=== PATIENT | male | born 1950 | race Caucasian/White ===

== ENCOUNTER 2018-07-23 07:07 | Outpatient (CLI) | payer BC ==
--- NOTE | 2018-07-23 07:53 | ULT ---
RIGHT UPPER QUADRANT ULTRASOUND: Date: 07/23/18 HISTORY: Right upper quadrant pain. FINDINGS: There is poor visualization of the left lobe of the liver and the pancreas due to overlying bowel gas . The right lobe of the liver demonstrates increased echogenicity consistent with fatty infiltration without focal mass or intrahepatic ductal dilatation. No gallstones, gallbladder wall thickening, or pericholecystic fluid is seen. The common duct measures 6.0 mm in diameter. Right kidney is normal. N o free fluid is seen in Morison's pouch. IMPRESSION: 1. Fatty liver. 2. No evidence of cholelithiasis. POS: [facility]
== END 2018-07-23 07:08 | disposition home or self-care (01) ==
LOC: SCSULT 07:07
PROVIDERS: ATTEND Internal Medicine
DX: R10.11 Right upper quadrant pain (principal); K76.0 Fatty (change of) liver, not elsewhere classified
CPT/HCPCS: 76705

== ENCOUNTER 2019-02-25 14:45 | Emergency (ER) | payer BC ==
[2019-02-25] MEDS ORDERED: diphenhydrAMINE 50 MG/ML VIAL ONE (15:28)
[2019-02-25] MEDS ORDERED: Ketorolac Tromethamine 30 MG/ML VIAL ONE (15:28)
[2019-02-25] MEDS ORDERED: Metoclopramide HCl 10 MG/2 ML VIAL ONE (15:28)
== END 2019-02-25 16:53 | disposition home or self-care (01) ==
LOC: ERS 14:45
DX: R51 Headache (principal); I10 Essential (primary) hypertension; E78.5 Hyperlipidemia, unspecified; Z79.899 Other long term (current) drug therapy; Z79.82 Long term (current) use of aspirin
CPT/HCPCS: 96365; 96375; J1200; J1885; J2765

== ENCOUNTER 2019-08-12 17:38 | Emergency (ER) | payer BC ==
[~2019-08-12 17:38] MED LIST: Iopamidol-370 76% 500 ML 1 ML ONE
[2019-08-12 18:17] LABS: #Eosinphils 0.1 thou/uL (0.0-0.7); #Lymphocytes 1.2 thou/uL (1.20-3.40); #Monocytes 0.4 thou/uL (0.11-0.59); #Neutrophils 3.9 thou/uL (1.40-6.50); %Basophils 0.5 % (0.0-1.0); %Eosinophils 2.4 % (0.0-10.0); %Lymphocytes 21.4 % (21.0-51.0); %Monocytes 6.2 % (0.0-10.0); %Neutrophils 69.5 % (42.0-75.0); Hemoglobin 12.2 g/dL (14.0-18.0); Mean Corpuscular HGB CONC 34.2 g/dL (32.0-36.0); Mean Corpuscular Hemoglobin 30.2 pg (27.0-31.0); Mean Corpuscular Volume 88.3 fL (78.0-98.0); RBC Distribution Width 11.5 % (11.5-14.5); Red Blood Cell (RBC) Count 4.04 mill/uL (4.70-6.10); White Blood Cell (WBC) Count 5.6 thou/uL (4.8-10.8)
[2019-08-12 18:22] LABS: Mean Platelet Volume 7.6 fL (7.4-10.4); Platelet Count 83 thou/uL (130-400)
[2019-08-12 18:32] LABS: MDiff Complete? YES; Platelet Morphology Comment Appears Decreased; Polychromasia SLIGHT = 2-3 cells (100X) (0-2/hpf)
[2019-08-12 18:35] LABS: ALT (SGPT) 23 U/L (8-55); AST (SGOT) 18 U/L (5-34); Albumin 4.1 g/dL (3.4-4.8); Alkaline Phosphatase 115 U/L (40-110); Anion Gap 14 mmol/L (10-20); BUN (Urea Nitrogen) 19 mg/dL (8.4-25.7); Bilirubin, Total 0.5 mg/dL (0.2-1.2); Calc. Creatinine Clearance 0 mL/min (70-130); Calcium 9.8 mg/dL (7.8-10.44); Carbon Dioxide 23 mmol/L (23-31); Chloride 102 mmol/L (98-107); Estimated GFR-MDRD 70; Globulin 2.9 g/dL (2.4-3.5); Glucose 150 mg/dL (83-110); Lipase Less than 4 U/L (8-78); Potassium 3.9 mmol/L (3.5-5.1); Sodium 135 mmol/L (136-145)
[2019-08-12] MEDS ORDERED: Morphine 4 MG/ML VIAL ONE ×3 (19:03→21:48)
[2019-08-12] MEDS ORDERED: Ondansetron PF 4 MG/2 ML Vial ONE (19:04)
[2019-08-12 20:40] LABS: Bilirubin Negative (Negative); Blood, Urine Negative (Negative); Clarity Clear (Clear); Glucose, Urine (Dipstick) Normal (Negative); Leukocyte Negative Leu/uL (Negative); Nitrite Negative (Negative); Protein, Urine (Dipstick) Negative (Neg-Trace); Urobilinogen Normal mg/dL (Less than 2)
--- NOTE | 2019-08-12 22:26 | CT ---
CT ABDOMEN AND PELVIS WITH IV CONTRAST: 08/12/19 HISTORY: Pancreatic cancer. Patient presents with lower abdominal pain with onset of symptoms this morning. COMPARISON: None. FINDINGS: There is a tiny 6 mm pleural based nodular density at the left lung base. The lungs baes are otherwis e clear. There is a hypodense mass involving the region of the neck and proximal body of the pancreas which me asures 5.2 cm x 3.4 cm likely corresponding to the patient's known pancreatic neoplastic process. The re is mild peripancreatic inflammatory changes seen predominantly involving the body and tail of the pancreas. Superimposed pancreatitis is a possibility. Areas of diminished enhancement noted in the s plenic vein at the level of the pancreatic mass. There is also absence of enhancement involving the s uperior mesenteric vein proximal to the confluence and at the level of the confluence with the portal vein A 1.3 cm hypodense lesion is seen in the medial aspect of the right hepatic lobe. There is a wedge shaped appearing low density area seen involving the medial aspect superior pole of the spleen with an additional small curvilinear hypodense areas seen in the lateral aspect body of th e spleen with a small low density area also seen in the posterior aspect inferior pole of the spleen. These areas may be related to small areas of splenic infarction. A few additional subcentimeter too small to characterize hypodense lesions are seen. Calcified granuloma is seen in the spleen. The bilateral adrenal glands, kidneys, and urinary bladder demonstrate a normal CT appearance. There is no evidence of lymphadenopathy. No fluid collection or free fluid is seen in the abdomen or pelvis. The cecum is distended with fecal material. Loops of small bowel are normal in caliber. There is spondylolisthesis of the lumbosacral junction with grade I anterolisthesis of L5 on S1. A fe w Schmorl's nodes are seen in the lumbar spine with degenerative changes in the lumbosacral junction. No suspicious lytic or sclerotic osseous lesions are appreciated. IMPRESSION: 1. Heterogeneous pancreatic mass involving the region of the neck and proximal body of the stom ach related to pancreatic neoplastic process. There is peripancreatic inflammatory changes predominan tly involving the distal body and tail. Associated pancreatitis is a possibility. 2. Subcentimeter hypodense lesion medial right hepatic lobe. Solitary metastatic lesion cannot b e excluded. Scattered hypodense areas within aathe spleen, some of which are wedge shaped in appearan ce. Findings could be related to areas of splenic infarction. A few additional subcentimeter hypodens e lesions are seen in the spleen. 3. Areas of diminished enhancement in the splenic vein at the level of the pancreatic mass. Ther e is also absence of enhancement involving the superior mesenteric vein proximal to the confluence an d at the level of the confluence with the portal vein likely related to thrombus which may be either bland thrombus or probably tumor thrombus within these vessels. There is suggestion of developing cav ernous transformation in the facundo hepatis, and the left portal vein is not well seen. 4. Wedge shaped areas of diminished attenuation in the spleen which could be related to areas of splenic infarction. 5. Solitary low density area in the medial aspect right hepatic lobe which could represent solit samm metastatic lesion. Code T POS: [facility]
== END 2019-08-12 22:50 | disposition home or self-care (01) ==
LOC: ERS 17:38
DX: R10.30 Lower abdominal pain, unspecified (principal); E78.5 Hyperlipidemia, unspecified; I10 Essential (primary) hypertension; Z79.891 Long term (current) use of opiate analgesic; Z79.899 Other long term (current) drug therapy
CPT/HCPCS: 36415; 74177; 80053; 81003; 83690; 85025; 96374; 96375; 96376; J2270; J2405; Q9967

== ENCOUNTER 2019-08-30 11:08 | Emergency (ER) | payer BC ==
[2019-08-30] MEDS ORDERED: Ondansetron PF 4 MG/2 ML Vial ONE (11:44)
[2019-08-30] MEDS ORDERED: Morphine 4 MG/ML VIAL ONE (11:44)
[2019-08-30] MEDS ORDERED: Ketorolac Tromethamine 30 MG/ML VIAL ONE (11:44)
[2019-08-30 12:11] LABS: #Lymphocytes 0.6 thou/uL (1.20-3.40); #Monocytes 0.6 thou/uL (0.11-0.59); #Neutrophils 3.4 thou/uL (1.40-6.50); %Basophils 0.2 % (0.0-1.0); %Eosinophils 0.4 % (0.0-10.0); %Neutrophils 73.4 % (42.0-75.0); Hemoglobin 11.9 g/dL (14.0-18.0); Mean Corpuscular HGB CONC 33.3 g/dL (32.0-36.0); Mean Corpuscular Hemoglobin 29.6 pg (27.0-31.0); Mean Platelet Volume 7.3 fL (7.4-10.4); Platelet Count 84 thou/uL (130-400); Red Blood Cell (RBC) Count 4.01 mill/uL (4.70-6.10); White Blood Cell (WBC) Count 4.7 thou/uL (4.8-10.8)
--- NOTE | 2019-08-30 12:27 | RAD ---
EXAM: Two views chest PROVIDED CLINICAL HISTORY: Pancreatic cancer. Patient experiencing abdominal pain with nausea and vomiting. COMPARISON: None FINDINGS: A right internal jugular vein Mediport catheter is noted in place with tip overlying the SVC. Cardiac silhouette and pulmonary vasculature are within normal limits. The lungs are clear. The osseous structures have a normal appearance. IMPRESSION: No acute cardiopulmonary process.
[2019-08-30 12:42] LABS: ALT (SGPT) 17 U/L (8-55); AST (SGOT) 15 U/L (5-34); Alkaline Phosphatase 90 U/L (40-110); Anion Gap 16 mmol/L (10-20); BUN (Urea Nitrogen) 29 mg/dL (8.4-25.7); Bilirubin, Total 0.8 mg/dL (0.2-1.2); Calc. Creatinine Clearance 0 mL/min (70-130); Calcium 9.7 mg/dL (7.8-10.44); Carbon Dioxide 24 mmol/L (23-31); Chloride 99 mmol/L (98-107); Estimated GFR-MDRD 70; Globulin 2.8 g/dL (2.4-3.5); Glucose 163 mg/dL (83-110); Potassium 3.8 mmol/L (3.5-5.1); Protein, Total 6.8 g/dL (5.8-8.1); Sodium 135 mmol/L (136-145)
--- NOTE | 2019-08-31 11:18 | RAD ---
EXAM: Portable Chest PROVIDED CLINICAL HISTORY: Pancreatic cancer. Patient experiencing abdominal pain with nausea and vomiting. COMPARISON: None FINDINGS: A right internal jugular vein Mediport catheter is noted in place with tip overlying the SVC. Cardiac silhouette and pulmonary vasculature are within normal limits. The lungs are clear. The osseous structures have a normal appearance. IMPRESSION: No acute cardiopulmonary process. Transcribed Date/Time: 08/31/2019 11:18 AM
== END 2019-08-30 15:30 | disposition home or self-care (01) ==
LOC: ERS 11:08
DX: G89.3 Neoplasm related pain (acute) (chronic) (principal); C25.9 Malignant neoplasm of pancreas, unspecified; I10 Essential (primary) hypertension; E11.9 Type 2 diabetes mellitus without complications; E78.5 Hyperlipidemia, unspecified; Z79.899 Other long term (current) drug therapy; Z79.891 Long term (current) use of opiate analgesic
CPT/HCPCS: 71045; 71046; 80053; 85025; 93005; 96361; 96374; 96375; J1885; J2270; J2405

== ENCOUNTER 2020-01-22 00:32 | Emergency (ER) | payer BC ==
[2020-01-22] MEDS ORDERED: Ondansetron ODT 4 MG TAB ONE (00:37)
[2020-01-22] MEDS ORDERED: Metoclopramide HCl 10 MG/2 ML VIAL ONE (01:04)
--- NOTE | 2020-01-22 08:34 | CT ---
PRELIMINARY REPORT/[facility]/EMERGENCY AFTER HOURS PROCEDURE: Small soft tissue injury noted at the posterior superior scalp. Addendum electronically signed by Cullen Rincon DO on January 22, 2020 1:11:23 AM CDT EXAM: CT Head and Cervical Spine Without IV contrast. CLINICAL HISTORY: PT PRESENTS TO ER S/P FALL AT HOME- PT STATES HE WAS USING TO WALKER TO GET AROUND AND BECAME DIZZY A ND JUST FELL. 1/2 LAC ON TOP OF HEAD TECHNIQUE: Axial computed tomography images were acquired of the head and the cervical spine without intravenous contrast. Sagittal and coronal reformatted images were obtained of the cervical spine. COMPARISON: None provided. FINDINGS: BRAIN: No acute intraparenchymal hemorrhage. No mass lesion. There is a hypodense area seen in the left cerebellar hemisphere suspicious for prior ischemic injury . No other CT evidence for acute territorial infarct. No midline shift or extra-axial collection. There is mild diffuse parenchymal volume loss, likely senescent in etiology. VENTRICLES No hydrocephalus. ORBITS The orbits are unremarkable. SINUSES AND MASTOIDS The paranasal sinuses and mastoid air cells are clear. SOFT TISSUES No significant facial or scalp soft tissue swelling evident. No radiopaque foreign body is seen. Right-sided central venous catheter is noted. BONES No acute osseous pathology evident. No acute fracture is evident on images of the head or cervical spine. DISKS/DEGENERATIVE CHANGES There is degenerative changes throughout the cervical spine as evidenced by disc height loss, disc os teophyte complex formation and facet arthrosis. No severe neural foraminal or spinal canal narrowing identified. Posterior cervical spine vertebral body alignment is within normal limits. IMPRESSION: No acute intracranial hemorrhage, mass-effect, extra-axial collection or edema. 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 Consider further evaluation with MRI as clinically warranted. Degenerative changes of the cervical spine without acute abnormality. ELECTRONICALLY SIGNED BY: Cullen Rincon DO Jan 22, 2020 1:09:11 AM CDT This report is intended for review by the ordering physician only, in accordance of law. If you recei ve this report in error, please call [facility] at [phone]. FINAL REPORT EMERGENCY AFTER HOURS CT BRAIN WITHOUT CONTRAST: FINDINGS/IMPRESSION: I agree with the findings and impression given in the preliminary report per [facility] physici [facility]. 1. No evidence of acute intracranial abnormality. 2. Area of encephalomalacia in the left cerebellar hemisphere may be secondary to remote infarction. POS: [facility]
--- NOTE | 2020-01-22 08:35 | CT ---
PRELIMINARY REPORT/[facility]/EMERGENCY AFTER HOURS PROCEDURE: Small soft tissue injury noted at the posterior superior scalp. Addendum electronically signed by Cullen Rincon DO on January 22, 2020 1:11:23 AM CDT EXAM: CT Head and Cervical Spine Without IV contrast. CLINICAL HISTORY: PT PRESENTS TO ER S/P FALL AT HOME- PT STATES HE WAS USING TO WALKER TO GET AROUND AND BECAME DIZZY A ND JUST FELL. 1/2 LAC ON TOP OF HEAD TECHNIQUE: Axial computed tomography images were acquired of the head and the cervical spine without intravenous contrast. Sagittal and coronal reformatted images were obtained of the cervical spine. COMPARISON: None provided. FINDINGS: BRAIN: No acute intraparenchymal hemorrhage. No mass lesion. There is a hypodense area seen in the left cerebellar hemisphere suspicious for prior ischemic injury . No other CT evidence for acute territorial infarct. No midline shift or extra-axial collection. There is mild diffuse parenchymal volume loss, likely senescent in etiology. VENTRICLES No hydrocephalus. ORBITS The orbits are unremarkable. SINUSES AND MASTOIDS The paranasal sinuses and mastoid air cells are clear. SOFT TISSUES No significant facial or scalp soft tissue swelling evident. No radiopaque foreign body is seen. Right-sided central venous catheter is noted. BONES No acute osseous pathology evident. No acute fracture is evident on images of the head or cervical spine. DISKS/DEGENERATIVE CHANGES There is degenerative changes throughout the cervical spine as evidenced by disc height loss, disc os teophyte complex formation and facet arthrosis. No severe neural foraminal or spinal canal narrowing identified. Posterior cervical spine vertebral body alignment is within normal limits. IMPRESSION: No acute intracranial hemorrhage, mass-effect, extra-axial collection or edema. 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 Consider further evaluation with MRI as clinically warranted. Degenerative changes of the cervical spine without acute abnormality. ELECTRONICALLY SIGNED BY: Cullen Rincon DO Jan 22, 2020 1:09:11 AM CDT This report is intended for review by the ordering physician only, in accordance of law. If you recei ve this report in error, please call [facility] at [phone]. FINAL REPORT EMERGENCY AFTER HOURS CT CERVICAL SPINE WITHOUT CONTRAST: FINDINGS/IMPRESSION: I agree with the findings and impression given in the preliminary report per [facility]. No evidence of acute osseous abnormality of the cervical spine. POS: [facility]
== END 2020-01-22 02:44 | disposition home or self-care (01) ==
LOC: ERS 00:32
DX: S01.01XA Laceration without foreign body of scalp, initial encounter (principal); S51.012A Laceration without foreign body of left elbow, initial encounter; E11.9 Type 2 diabetes mellitus without complications; E78.5 Hyperlipidemia, unspecified; I10 Essential (primary) hypertension; Z79.899 Other long term (current) drug therapy; W22.8XXA Striking against or struck by other objects, initial encounter
CPT/HCPCS: 12001; 70450; 72125; 96365; J2765; Q0162